=== PATIENT | male | born 1990 | race Caucasian/White ===

== ENCOUNTER 2021-01-16 10:29 | Emergency (ER) | payer SELFPAY ==
[~2021-01-16] VITALS: Ht 188 cm; Wt 80.8 kg
[2021-01-16 11:09] LABS: BASO # 0.1 10^3/uL (0.0-0.2); BASO % 0.7 % (0.0-1.0); EOS # 0.5 10^3/uL (0.0-0.5); EOS % 4.6 % (0.0-3.0); HEMATOCRIT 43.9 % (42.0-52.0); HEMOGLOBIN 14.9 g/dl (13.5-17.5); LYMPH % 28.3 % (24.0-44.0); MEAN CORPUSCULAR HEMOGLOBIN 30.5 pg (27.0-33.0); MEAN CORPUSCULAR HGB CONC 33.9 g/dl (32.0-36.5); MONO # 0.8 10^3/uL (0.0-0.8); MONO % 7.5 % (2.0-8.0); NEUTROPHILS # 6.2 10^3/uL (1.5-8.5); NEUTROPHILS % 58.5 % (36.0-66.0); PLATELET COUNT, AUTOMATED 304 10^3/uL (150-450); RED BLOOD COUNT 4.88 10^6/uL (4.30-6.10); WHITE BLOOD COUNT 10.6 10^3/uL (4.0-10.0)
[2021-01-16] MEDS ORDERED: NS 1,000 ML IV ONE (11:15)
[2021-01-16] MEDS ORDERED: ONDANSETRON 4MG/2ML VIAL IV ONE (11:15)
[2021-01-16] MEDS ORDERED: KETOROLAC 30 MG/ML 1ML VIAL IV ONE (11:15)
[2021-01-16] MEDS ORDERED: ISOVUE-370 76% 100ML VIAL As Ordered ONE (11:35)
[2021-01-16 11:39] LABS: ALBUMIN 4.4 GM/DL (3.2-5.2); BILIRUBIN,DIRECT 0.1 MG/DL (0.0-0.2); BILIRUBIN,TOTAL 0.4 MG/DL (0.2-1.0); TOTAL PROTEIN 8.3 GM/DL (6.4-8.2)
--- NOTE | 2021-01-16 11:58 | REP ---
INDICATION: severe lower back pain, no prior history. COMPARISON: None. TECHNIQUE: Axial noncontrast images of the lumbosacral spine from mid T12 through mid sacrum with coronal and sagittal reformations. This CT examination was performed using the following dose reduction techniques: Automated exposure control, adjustment of mA and/or kv according to the patient's size, and use of iterative reconstruction technique. FINDINGS: Alignment and lordosis maintained. Vertebral bodies are intact. Posterior elements and spinous processes are intact. There is no evidence for acute fracture/compression injury or subluxation. The spinal canal is patent. The paravertebral soft tissues are normal. There is disc space narrowing at L5-S1 and small posterior disc bulges at L4-5 and L5-S1 cannot be excluded. IMPRESSION: 1. No acute lumbosacral spine pathology appreciated. 2. Very small posterior disc bulges at L5-S1 and L4-5 cannot be excluded. <Electronically signed by Homero Lopez > 01/16/21 [id number]
--- NOTE | 2021-01-16 12:07 | REP ---
INDICATION: diffuse abd pain, lower abd into back. COMPARISON: None TECHNIQUE: Axial contrast-enhanced images from the lung bases to the pubic symphysis using 100 cc Isovue 370 intravenous contrast material. Coronal and sagittal reformations obtained. This CT examination was performed using the following dose reduction techniques: Automated exposure control, adjustment of mA and/or kv according to the patient's size, and the use of iterative reconstruction technique. FINDINGS: Lung bases are clear. Visualized heart and pericardium normal. Liver, spleen, pancreas, gallbladder, bilateral adrenal glands and kidneys are normal. The enteric system is without obstruction or free air to suggest perforation. The colon is collapsed although mild mucosal thickening involving the ascending and transverse colon as well as the sigmoid colon cannot be excluded and may represent a mild infectious/inflammatory colitis. Normal terminal ileum and appendix identified in the right lower quadrant.. Pelvis demonstrates normal bladder and age-appropriate prostate/seminal vesicles. No ascites. No free air. No intraperitoneal or retroperitoneal adenopathy. Abdominal aorta and vasculature appear normal. Musculoskeletal structures are intact and without acute osseous abnormality. IMPRESSION: Cannot exclude a mild infectious/inflammatory colitis. Otherwise normal contrast-enhanced CT of the abdomen and pelvis. <Electronically signed by Homero Lopez > 01/16/21 [id number]
--- NOTE | 2021-01-16 13:28 | REP ---
INDICATION: r sided pain ro torsion COMPARISON: None. TECHNIQUE: [place] scale and color Doppler evaluation using linear and curved array transducer with color Doppler evaluation. FINDINGS: The testicles and epididymi are relatively normal in contour, size, echogenicity, vascularity and overall appearance. There is no evidence for intratesticular mass lesion, infectious/inflammatory process, or torsion. No obvious hydroceles identified. Incidental 6 mm right epididymal cyst. Right testicle measures 4.9 x 1.9 x 2.8 cm. Left testicle measures 4.3 x 1.9 x 2.8 cm. IMPRESSION: Essentially normal scrotal ultrasound. <Electronically signed by Homero Lopez > 01/16/21 [id number]
[2021-01-16 13:55] VITALS: BP 138/78
== END 2021-01-16 13:57 | disposition home or self-care (01) ==
LOC: M ED 10:29
DX: M54.5 Low back pain (principal); R10.84 Generalized abdominal pain; F17.200 Nicotine dependence, unspecified, uncomplicated; F12.10 Cannabis abuse, uncomplicated; M51.27 Other intervertebral disc displacement, lumbosacral region; Z88.2 Allergy status to sulfonamides
CPT/HCPCS: 36415; 72131; 74177; 76870; 80047; 80076; 81001; 83690; 85025; 93976; 96374; 96375; 99284; J1885; J2405; Q9967

== ENCOUNTER 2025-05-11 13:47 | Emergency (ER) | payer OTHER, SELFPAY ==
[~2025-05-11] VITALS: Ht 188 cm; Wt 85.4 kg
[~2025-05-11 13:47] MED LIST: ERYT5OIN25 OP
[2025-05-11 13:57] VITALS: BP 141/88; TEMP 99.2; O2SAT 99
== END 2025-05-11 16:12 | disposition left against medical advice (07) ==
LOC: M ED 13:47
DX: Z53.21 Procedure and treatment not carried out due to patient leaving prior to being seen by health care provider (principal)